=== PATIENT | female | born 1950 | race Caucasian/White ===

== ENCOUNTER 2018-03-25 06:28 | Day surgery (SDC) | payer MEDICARE ==
[~2018-03-25] VITALS: Ht 157.5 cm; Wt 64.5 kg
[2018-03-25] VITALS (9 sets, daily range): BP systolic 132–175; BP diastolic 82–113
[2018-03-25] MEDS ORDERED: normal saline 1000ml 1,000 ML IV SCH ×2 (06:50→10:01)
[2018-03-25] MEDS ORDERED: ceFAZolin inj. 2,000 MG in normal saline soln 50 ML IV ONE (06:50)
[2018-03-25] MEDS ORDERED: ESTR0.6261 PO (07:02)
[2018-03-25] MEDS ORDERED: PER10325T PO (07:02)
[2018-03-25] MEDS ORDERED: THY15T PO (07:02)
[2018-03-25] MEDS ORDERED: PRED5TAB PO (07:02)
[2018-03-25] MEDS ORDERED: HYDR-565 PO (07:02)
[2018-03-25] MEDS ORDERED: LOSA50TA37 PO (07:02)
[2018-03-25] MEDS ORDERED: PRED1TAB PO (07:02)
[2018-03-25] MEDS ORDERED: MULT-38 PO (07:02)
[2018-03-25 07:12] LABS: BASOPHILS % (AUTO) 0.2 % (0-1); EOSINOPHILS # (AUTO) 0.3 X10'3 (0-0.9); HEMATOCRIT 44.1 % (35.0-45.0); HEMOGLOBIN 15.3 g/dl (12.0-16.0); LYMPHOCYTES # (AUTO) 2.1 X10'3 (1.1-4.8); LYMPHOCYTES % (AUTO) 19.7 % (21-51); MEAN CORPUSCULAR HEMOGLOBIN 35.4 PG (27.0-31.0); MEAN CORPUSCULAR HGB CONC 34.8 % (33.0-36.5); MEAN CORPUSCULAR VOLUME 101.7 FL (78-98); MEAN PLATELET VOLUME 7.3 FL (7.4-10.4); MONOCYTES # (AUTO) 0.6 X10'3 (0-0.9); MONOCYTES % (AUTO) 5.3 % (2-12); NEUTROPHILS # (AUTO) 7.7 X10'3 (1.8-7.7); NEUTROPHILS % (AUTO) 71.8 % (42-75); PLATELET COUNT 302 X10'3 (140-440); RED BLOOD COUNT 4.33 X10'6 (4.20-5.60); RED CELL DISTRIBUTION WIDTH 14.1 % (11.5-14.5); WHITE BLOOD COUNT 10.8 X10'3 (4.5-11.0)
[2018-03-25] MEDS ORDERED: fentaNYL/PF 50MCG/1 ML 2ML syringe IV PRN (08:10)
[2018-03-25] MEDS ORDERED: LIDOcaine 1%/PF (10mg/ml) 5ml vial SQ ONE (08:10)
[2018-03-25] MEDS ORDERED: midazolam 2 mg/2 ml injection IV PRN (08:10)
[2018-03-25] MEDS ORDERED: diphenhydrAMINE 50 mg/ml inj IV ONE (08:10)
[2018-03-25] MEDS ORDERED: LIDOcaine 1%/PF (10mg/ml) 5ml vial ONE (08:27)
[2018-03-25] MEDS ORDERED: midazolam 2 mg/2 ml injection ONE ×2 (08:34→09:01)
[2018-03-25] MEDS ORDERED: diphenhydrAMINE 50 mg/ml inj ONE (08:34)
[2018-03-25] MEDS ORDERED: fentaNYL/PF 50MCG/1 ML 2ML syringe ONE ×3 (08:35→09:32)
[2018-03-25] MEDS ORDERED: iohexol 300 MG/1 ML 50ml polymer ONE (09:07)
[2018-03-25] MEDS ORDERED: HYDROcodone/acetaminophen 5mg/325mg tablet PO PRN (10:05)
== END 2018-03-25 13:25 | disposition home or self-care (01) ==
LOC: SSTAY O 06:28
PROVIDERS: ATTEND Radiology Diagnostic Radiology
DX: M48.54XA Collapsed vertebra, not elsewhere classified, thoracic region, initial encounter for fracture (principal); D16.6 Benign neoplasm of vertebral column; E03.9 Hypothyroidism, unspecified; I10 Essential (primary) hypertension; J45.998 Other asthma; G89.29 Other chronic pain; Z90.89 Acquired absence of other organs; Z90.710 Acquired absence of both cervix and uterus; Z98.890 Other specified postprocedural states; Z88.2 Allergy status to sulfonamides; Z79.891 Long term (current) use of opiate analgesic; Z79.899 Other long term (current) drug therapy
CPT/HCPCS: 22513; 36415; 85025; 99152; 99153; J0690; J1200; J2001; J2250; J3010; J7030; Q9967; 88173; 88305; 88342; A4620